=== PATIENT | male | born 1945 | race Caucasian/White ===

== ENCOUNTER 2021-07-10 06:51 | Day surgery (SDC) | payer MEDICARE, OTHER ==
[2021-07-06 16:47] LABS: BASOPHILS # (AUTO) 0.1 X10'3 (0-0.2); EOSINOPHILS # (AUTO) 0.3 X10'3 (0-0.9); EOSINOPHILS % (AUTO) 5.1 % (0-6); LYMPHOCYTES # (AUTO) 1.4 X10'3 (1.1-4.8); LYMPHOCYTES % (AUTO) 19.8 % (21-51); MEAN CORPUSCULAR HGB CONC 34.8 g/dL (33.0-36.5); MEAN CORPUSCULAR VOLUME 112.1 FL (78-98); MEAN PLATELET VOLUME 7.7 FL (7.4-10.4); MONOCYTES # (AUTO) 0.7 X10'3 (0-0.9); MONOCYTES % (AUTO) 10.8 % (2-12); NEUTROPHILS # (AUTO) 4.3 X10'3 (1.8-7.7); NEUTROPHILS % (AUTO) 63.3 % (42-75); PRE OP HEMATOCRIT 37.4 % (42.0-52.0); PRE OP PLATELET COUNT 290 X10'3 (140-440); RED BLOOD COUNT 3.33 X10'6 (4.70-6.10); RED CELL DISTRIBUTION WIDTH 15.9 % (11.5-14.5)
[2021-07-06 17:00] LABS: CLARITY,URINE CLEAR (Clear); COLOR,URINE YELLOW (Yellow); GLUCOSE, URINE NEGATIVE (Neg); KETONES,URINE NEGATIVE (Neg); LEUKOCYTE ESTERASE ,URINE NEGATIVE (Neg); NITRITES, URINE NEGATIVE (Neg); OCCULT BLOOD,URINE NEGATIVE (Neg); PROTEIN,URINE NEGATIVE (Neg); UA COLLECTION TYPE CLN CATCH MIDSTREAM; UROBILINOGEN,URINE 0.2 E.U/dL (0.2-1.0)
[2021-07-06 17:15] LABS: ALBUMIN 3.6 G/DL (3.4-5.0); ALBUMIN/GLOBULIN RATIO 1.1 (1.1-1.5); ALKALINE PHOSPHATASE 47 IU/L (46-116); BLOOD UREA NITROGEN 28 MG/DL (7-18); BUN/CREATININE RATIO 21.5 (5.4-32.0); CALCIUM 9.2 MG/DL (8.5-10.1); CHLORIDE 109 MMOL/L (99-107); PRE OP ALT 18 U/L (30-65); PRE OP ANION GAP 13 (8-16); PRE OP AST 21 U/L (10-37); PRE OP BILIRUB, TOTAL 0.6 MG/DL (0.0-1.0); PRE OP GLUCOSE 111 MG/DL (70-104); PRE OP POTASSIUM 3.7 MMOL/L (3.4-5.1); PRE OP SODIUM 143 MMOL/L (135-145); TOTAL CARBON DIOXIDE 21.2 MMOL/L (24-32); eGFR 54 ML/MIN
[2021-07-06 17:24] LABS: ELLIPTOCYTES 1+; PLATELET ESTIMATE NORMAL
[2021-07-06 17:25] LABS: SCHISTOCYTES 1+
[~2021-07-10] VITALS: Ht 172.7 cm; Wt 104.5 kg
[2021-07-10] VITALS (8 sets, daily range): BP systolic 103–125; BP diastolic 58–66
[~2021-07-10 06:51] MED LIST: AMLO10TA13 PO; BENA20TA83 PO; GEMF600T89 PO; INDA2.5T5 PO; LEVO100T9 PO; cefazolin/dext.iso 2gm/50ml IV ONE; famotidine 20mg tablet PO ONE; ringers solution, lacted 1,000 ML IV SCH
--- NOTE | 2021-07-10 08:00 | NUR ---
PT NOTED TO HAVE UNEQUAL PUPILS R>L, RIGHT DILATED
[2021-07-10] MEDS ORDERED: bacitracin 15gm ointment TP ONE (08:01)
[2021-07-10] MEDS ORDERED: cloNIDine hcl/PF 100mcg/ml inj ONE (09:02)
[2021-07-10] MEDS ORDERED: fentaNYL/PF 50MCG/1 ML 2ML syringe ONE (09:03)
[2021-07-10] MEDS ORDERED: MIDAZolam 1 MG/ML 5ML VIAL ONE (09:03)
[2021-07-10] MEDS ORDERED: morphine 4 MG/ML inj SYRINge IV PRN (10:40)
[2021-07-10] MEDS ORDERED: morphine 2 MG/ML inj. syringe IV PRN (10:40)
[2021-07-10] MEDS ORDERED: meperidine/PF 25mg/ml syringe IV PRN ×3 (10:40)
[2021-07-10] MEDS ORDERED: proCHLORperazine 10 MG/2 ml inj IV PRN (10:40)
[2021-07-10] MEDS ORDERED: ringers solution, lacted 1,000 ML IV SCH (10:40)
[2021-07-10] MEDS ORDERED: ondansetron/PF 4mg/2ml inj IV PRN (10:40)
[2021-07-10] MEDS ORDERED: propofol inj 20 ML IV ONE (11:32)
[2021-07-10] MEDS ORDERED: ROPIVAcaine 0.5% (5mg/ml) 30ml vial ONE (11:33)
[2021-07-10] MEDS ORDERED: ROPIVAcaine 0.2% (10 MG/5 ML) BOLUS INJECTION POPLITEAL PRN (11:40)
[2021-07-10] MEDS ORDERED: ROPIVAcaine 0.2%/PF PUMP/bolus 545 ML POPLITEAL SCH (11:40)
--- NOTE | 2021-07-10 11:51 | NUR ---
Received from OR via , accompanied by Anesthesiologist DR RUGGIERO and report given by Anesthesiolgist.AWAKENS TO VOICE. VITALS STABLE. DRESIING / SPLINT DI. RAH PAIN. TOES WARM AND PINK.
--- NOTE | 2021-07-10 13:01 | NUR ---
AWAKE AND ORIENTED. VITALS STABLE. SPLINT DI. RAH PAIN. ONQ ON AND INSTRUCTIONS GIVEN TO HIM AND HIS . HOME WITH HIS AT THIS TIME.
== END 2021-07-10 13:01 | disposition home or self-care (01) ==
LOC: PAS 06:51
PROVIDERS: ATTEND Podiatrist Foot & Ankle Surgery
DX: S82.871A Displaced pilon fracture of right tibia, initial encounter for closed fracture (principal); I10 Essential (primary) hypertension; E66.9 Obesity, unspecified; F17.210 Nicotine dependence, cigarettes, uncomplicated; G89.18 Other acute postprocedural pain; Z98.890 Other specified postprocedural states; X58.XXXA Exposure to other specified factors, initial encounter; Y93.89 Activity, other specified; Y92.89 Other specified places as the place of occurrence of the external cause; Y99.8 Other external cause status
CPT/HCPCS: 27827; 36415; 64446; 64447; 73590; 76000; 76937; 76942; 80053; 81003; 82948; 85025; 93005; A6223; C1713; J0690; J0735; J2250; J2704; J2795; J3010; J7030; J7120; U0003; U0005; Z7506; Z7508; Z7512; 85008; A4215; A4618; A6253; A6449; A7000